=== PATIENT | female | born 1965 | race Caucasian/White ===

== ENCOUNTER → 2017-07-29 | Outpatient (CLI) | payer OTHER ==
--- NOTE | 2017-07-29 13:50 | Diagnostic Imaging Report ---
PROCEDURE:TRANSVAGINAL ULTRASOUND COMPARISON:None. INDICATIONS:LLQ pain, felt bumps on ovaries, history of ovarian cysts TECHNIQUE: Grayscale transverse and sagittal transabdominal and transvaginal images were obtained of the pelvis. Transvaginal imaging was medically necessary to better assess the adnexa. FINDINGS: 52 year-old female patient status post hysterectomy in 2009 UTERUS: Absent. Vaginal cuff is unremarkable. RIGHT OVARY: 2.8 x 1.9 x 1.6 cm. No focal lesions. LEFT OVARY: 2.6 x 2.0 x 1.9 cm. 1.4 x 0.9 x 0.8 cm anechoic structure in the left ovary, which may represent a dominant follicle or small simple follicular cyst. No adnexal masses. There is no free fluid within the pelvis. CONCLUSION: 1. 1.4 cm left ovarian dominant follicle versus small simple follicular cyst. No further followup is indicated. 2. Normal ovarian size and echogenicity. No adnexal masses. 3. Status post hysterectomy Berhane Knutson M.D. Dictated by: Berhane Knutson M.D. on 07/29/2017 at 13:54 Electronically approved by: Berhane Knutson M.D. on 07/29/2017 at 13:54
== END ==
LOC: US 10:32
PROVIDERS: ATTEND Family Medicine
DX: R19.04 Left lower quadrant abdominal swelling, mass and lump (principal)
CPT/HCPCS: 76830